=== PATIENT | male | born 1975 | race African-American/Black ===

== ENCOUNTER 2018-02-15 02:44 | Emergency (ER) | payer MEDICAID ==
[~2018-02-15] VITALS: Ht 188 cm; Wt 83.0 kg
[~2018-02-15 02:44] MED LIST: ALBUTEROL INHALER; FLOVENT INHALER
[2018-02-15] MEDS ORDERED: ALBUTEROL (0.083%) 2.5MG/3ML NEB HHN STA (03:24)
[2018-02-15] MEDS ORDERED: IPRATROPIUM BROMIDE (0.02%) 0.5MG/2.5ML NEB HHN STA (03:24)
[2018-02-15] MEDS ORDERED: PREDNISONE 20MG TABLET PO STA (03:24)
[2018-02-15 05:43] VITALS: BP 125/88
== END 2018-02-15 07:02 | disposition home or self-care (01) ==
LOC: ER 06:55
DX: J45.901 Unspecified asthma with (acute) exacerbation (principal)
CPT/HCPCS: 94640; 99283; J7512; J7611